=== PATIENT | female | born 1985 | race Hispanic/Latino ===

== ENCOUNTER 2017-10-10 09:43 | Outpatient (CLI) | payer BC ==
--- NOTE | 2017-10-10 16:45 | Magnetic Resonance Report ---
MRI PELVIS WITHOUTAND WITH CONTRAST: 10/10/17 09:43:00 CLINICAL: 32-year-old with a pelvic mass. COMPARISON :None. TECHNIQUE: Sagittal, coronal and axial T1 and T2 fat sat sequences plus sagittal, coronal and axial postcontrast T1 fat sequences on a 1.5 Sherita magnet. 17.0 cc of Multihance was injected intravenously for contrast portion of exam the consent was obtained prior to the administration of contrast. FINDINGS: An enlarged fibroid uterus measures approximately 15 cm craniocaudal dimension by 6.6 cm AP dimension by approximately 11 cm transverse dimension. A cluster of pedunculated fibroids projects from the anterior uterine fundus and is connected to the fundus by 3 cm wide pedicle. This cluster of loculated fibroids is dumbbell shaped and measures 11.0 x 9.0 x 7.0 cm. It consists of a multicystic superior component measuring approximately 7 x 7 cm and a more inferior more homogeneously solid component measuring approximately 5 x 5 cm. No other uterine fibroids are identified. The portion of the uterus separate from the pedunculated fibroids measures approximately 10 cm craniocaudal dimension by 5.6 cm transverse dimension by 4.1 cm AP dimension. The body of the uterus deviates to the right of midline and the cluster of pedunculated fibroids projects from the midline and to the left of midline. The endometrium is normal and measures 7.5 mm AP thickness. The ovaries are normal and contain small follicles. The right ovary measures 3.7 x 3.2 x 2.2 cm and the left ovary measures 3.9 x 3.0 x 2.5 cm. A dominant follicle in the left ovary measures 3 cm. No adnexal mass. Mild physiologic free fluid in the pelvis. Urinary bladder is normal. Normal rectum and sigmoid colon. A slightly irregular lesion of the sacrum at S1 near the midline measures 3.0 x 2.4 x 1.9 cm. It is hypointense on T1 and hyperintense on T2 but demonstrates no enhancement postcontrast. A similar midline lesion at S3 measures 1.2 x 0.9 x 1.3 cm. On IMPRESSION: 1. Uterine leiomyomata with an 11 cm cluster of pedunculated fibroids projecting from the anterior uterine fundus. No other fibroids are identified. 2. Normal endometrium. 3. Normal ovaries. 4. Probably benign lesions of the S1 and S3 vertebra. Both lesions have benign morphology and signal characteristics typical of benign cysts. The absence of enhancement also goes along with benign lesions. Consider pelvic CT for further evaluation.
== END 2017-10-10 09:44 | disposition home or self-care (01) ==
LOC: MRI 09:43
PROVIDERS: ATTEND Obstetrics & Gynecology
DX: R19.07 Generalized intra-abdominal and pelvic swelling, mass and lump (principal); D25.9 Leiomyoma of uterus, unspecified
CPT/HCPCS: 72197; A9577